=== PATIENT | male | born 1965 | race Two or more races ===

== ENCOUNTER 2023-12-08 18:09 | Emergency (ER) | payer BC, OTHER ==
[2023-12-08 22:18] VITALS: BP 150/103; PULSE 68
== END 2023-12-08 22:16 | disposition home or self-care (01) ==
LOC: JD.ED 18:09
DX: S90.32XA Contusion of left foot, initial encounter (principal); M79.671 Pain in right foot; W20.8XXA Other cause of strike by thrown, projected or falling object, initial encounter
CPT/HCPCS: 736302650; 73630-50; 99283